=== PATIENT | male | born 1950 | race Caucasian/White ===

== ENCOUNTER 2016-12-28 02:26 | Emergency (ER) | payer MEDICARE, OTHER ==
--- NOTE | ~2016-12-28 | EKG ---
PATIENT: KIRAN BILLINGS UNIT #: [id number] Ventricular Rate: 94 BPM Atrial Rate: 94 BPM P-R Interval: 170 ms QRS Duration: 90 ms Q-T Interval: 366 ms QTC Calculation(Bezet): 457 ms P [place]: 71 degrees Calculated R [place]: -46 degrees Calculated T [place]: 55 degrees Diagnosis Line: Normal sinus rhythm Diagnosis Line: Left axis deviation Diagnosis Line: Minimal voltage criteria for LVH, may be normal Diagnosis Line: variant Diagnosis Line: Inferior infarct , age undetermined Diagnosis Line: Possible Anterior infarct , age undetermined Diagnosis Line: Abnormal ECG Diagnosis Line: No previous ECGs available Diagnosis Line: Confirmed by ABEL CHANDLER MD ([id number]) on 12/28/2016 Diagnosis Line: 7:37:18 PM INTERPRETING MD: RAMESH BHATT
--- NOTE | ~2016-12-28 | CR72 ---
[facility] A Service of [facility] RADIOLOGY TEXT RESULTS PATIENT: KIRAN BILLINGS LOCATION: [facility] : 54 UNIT #: [id number] AGE: [address]: Rahul Skaggs MD SEX: M ORDER DR: [id number] [facility] [address] [place], [place] [address] [id number] MR#: [id number] Acc #: [id number] NAME: KIRAN BILLINGS. : 1950 SEX: M STUDY DATE/TIME: 12/28/2016 2:56 UNIT: [facility] ROOM: STUDY DESCRIPTION: CR Chest Single View Portable Attending Physician: Rahul Skaggs M.D. Ordering Physician: Rahul Skaggs M.D. Primary Care Physician: Primary Care Physician No MEDICAL IMAGING REPORT This report is preliminary unless electronic signature is present EXAM Portable AP view of chest COMPARISON August 21, 2015, August 20, 2015 and January 14, 2003. INDICATION 66-year-old male with dyspnea tonight. FINDINGS There is mild diffuse thoracic spondylosis. No evidence of pneumothorax, pleural effusion or acute airspace disease. Calcified granuloma again noted in the right lung either the middle or right lower lobe. No evidence of acute airspace disease. There are also likely calcified granulomas in the left lung, grossly stable from 2002. There may be mild cardiomegaly. IMPRESSION 1. Questionable mild cardiomegaly, possibly accentuated by portable technique. 2. No acute pulmonary abnormality. Dictated by... Brian Shell M.D. THIS IS AN ELECTRONICALLY VERIFIED REPORT Brian Shell M.D. at 12/30/2016 7:03 AM SHAMA/jada TD: 12/28/2016 09:19 JOB #: [id number] [facility] A Service of [facility] RADIOLOGY TEXT RESULTS PATIENT: KIRAN BILLINGS LOCATION: [facility] : 54 UNIT #: [id number] AGE: [address]: Rahul Skaggs MD SEX: M ORDER DR: MEDICAL IMAGING REPORT COPY
[~2016-12-28 02:26] MED LIST: ALLOPURINOL300 MG PO; HYDRALAZINE HCL50 MG PO; LAMOTRIGINE200 MG PO; OXYCONTIN80 MG PO; PRISTIQ100 MG PO; ROXICODONE5 MG DOB; SEROQUEL XR200 MG DOB
[2016-12-28 02:45] LABS: BASOPHIL# 0.1 X10e3 (0-0.3); BASOPHIL% 0.5 % (0-2.5); EOSINOPHIL% 0.1 % (0.0-7.0); HEMATOCRIT 57.1 % (38.0-50.0); HEMOGLOBIN 19.6 gm/dL (13.0-16.0); LYMPHOCYTE# 1.5 X10e3 (1.0-3.5); LYMPHOCYTE% 10.1 % (17.0-45.0); MEAN CELL VOLUME 99.2 FL (83-96); MEAN CORPUSCULAR HEMOGLOBIN 34.1 PG (28-34); MEAN CORPUSCULAR HGB CONC 34.4 g/dL (30-36); MEAN PLATELET VOLUME 7.9 FL (6.5-11.5); MONOCYTE# 1.2 X10e3 (0-1.0); NEUTROPHIL# 11.6 X10e3 (1.5-7.1); NEUTROPHIL% 81.3 % (40-75); PLATELET COUNT 202 X10e3 (140-420); RED BLOOD COUNT 5.76 X10e (3.90-5.60); RED CELL DISTRIBUTION WIDTH 14.2 % (11.0-15.5); WHITE BLOOD COUNT 14.3 X10e3 (4.0-10.5)
[2016-12-28 02:47] LABS: DIFF IND NO
[2016-12-28 03:07] LABS: BLOOD UREA NITROGEN 7 mg/dL (9-23); BUN/CREATININE RATIO 8.75; CALCIUM SERUM 8.5 mg/dL (8.4-10.2); CARBON DIOXIDE 25 mmol/L (22-31); CHLORIDE 94 mmol/L (100-111); CREATININE SERUM 0.8 mg/dL (0.6-1.4); GLOM FILT RATE Estimated ABOVE60 mL/min (>60); GLUCOSE FASTING 108 mg/dL (70-110); POTASSIUM 4.1 mmol/L (3.5-5.1); SODIUM 129 mmol/L (135-145)
[2016-12-28 05:51] LABS: URINE SOURCE CLEAN CATCH
[2016-12-28 05:55] LABS: URINE APPEARANCE CLEAR; URINE BILIRUBIN NEG (NEG); URINE BLOOD NEG (NEG); URINE COLOR YELLOW; URINE GLUCOSE NEG (NEG); URINE KETONE NEG (NEG); URINE LEUKOCYTE ESTERASE TRACE (NEG); URINE NITRATE NEG (NEG); URINE PH 6.5 (5-8); URINE PROTEIN TRACE (NEG); URINE SPECIFIC GRAVITY 1.011 (1.003-1.035); URINE UROBILINOGEN 0.2 MG/DL (NEG)
[2016-12-28 05:56] LABS: URBCS1 AUWI 0-2 /[HPF] (0-2); URINE BACTERIA AUWI NEG (NEGATIVE); URINE SQUAMOUS EPITHELIAL CELL OCC /[HPF]
[2016-12-28 06:07] LABS: CULTURE INDICATED? NO
[2016-12-28 06:09] LABS: U HYALINE CASTS AUWI 0-2 /[LPF]
== END 2016-12-28 06:54 | disposition home or self-care (01) ==
LOC: CED 02:26
PROVIDERS: Emergency Medicine
DX: A08.4 Viral intestinal infection, unspecified (principal); E11.9 Type 2 diabetes mellitus without complications; I10 Essential (primary) hypertension; F17.210 Nicotine dependence, cigarettes, uncomplicated; Z79.899 Other long term (current) drug therapy
CPT/HCPCS: 36415; 51701; 71010; 80048; 81003; 85025; 93005; 96360; 99284